=== PATIENT | female | born 1965 | race Two or more races ===

== ENCOUNTER → 2017-05-23 | Outpatient (CLI) | payer MEDICARE, MEDICAID ==
[~2017-05-23] MED LIST: BUPIVACAINE MPF 0.25% 10 ML VIAL. ONE; LIDOCAINE 1% PF 30 ML VIAL. ONE; methylPREDNISolone ACETATE 80 MG/ML VIAL. ONE
== END | disposition home or self-care (01) ==
LOC: SURG 14:11
PROVIDERS: ATTEND Anesthesiology Pain Medicine
DX: M47.814 Spondylosis without myelopathy or radiculopathy, thoracic region (principal); F32.9 Major depressive disorder, single episode, unspecified; Z98.890 Other specified postprocedural states
CPT/HCPCS: 64490; 64491; 64492; J1040; J2001; J3490

== ENCOUNTER → 2018-01-06 | Outpatient (CLI) | payer MEDICARE, MEDICAID ==
--- NOTE | 2018-01-06 16:22 | RAD ---
INDICATION: Dystrophic uterine bleeding. TECHNIQUE: Transabdominal and transvaginal pelvic ultrasound was performed. No comparison is available. FINDINGS: Uterus is enlarged, 14.2 x 7.3 x 6.7 cm. Endometrial stripe measures 7 mm. Multiple probable fibroids are noted, the 2 largest measure 4.3 and 4.0 cm in size. Nabothian cysts are noted. Right ovary is normal in appearance with 15 mm cyst or follicle. Color flow and waveform is documented. Left ovary was not visualized transabdominally or transvaginally. There is no free pelvic fluid. IMPRESSION: Uterine enlargement with apparent fibroids. The 2 largest fibroids measure 4.3 and 4.0 cm in size. Electronically signed by: Talon Dyer MD (01/06/2018 4:19 PM) [facility]
== END | disposition home or self-care (01) ==
LOC: US 13:22
PROVIDERS: ATTEND Obstetrics & Gynecology
DX: N85.2 Hypertrophy of uterus (principal); D25.9 Leiomyoma of uterus, unspecified; F32.9 Major depressive disorder, single episode, unspecified
CPT/HCPCS: 76830; 76856